=== PATIENT | male | born 1965 | race Caucasian/White ===

== ENCOUNTER 2017-03-02 19:15 | Emergency (ER) | payer OTHER ==
[~2017-03-02] VITALS: Ht 180.3 cm; Wt 75.8 kg
[~2017-03-02 19:15] MED LIST: FLEXERIL PO; NO HOME MEDS; TORADOL PO
[2017-03-02] MEDS ORDERED: PENICILLN VK500 MG PO (19:39)
[2017-03-02] MEDS ORDERED: TRAMADOL HYDROC50 MG PO (19:39)
[2017-03-02 19:50] VITALS: BP 138/87
== END 2017-03-02 19:50 | disposition home or self-care (01) | DRG 159 ==
LOC: ED 19:15
DX: K03.81 Cracked tooth (principal); F17.210 Nicotine dependence, cigarettes, uncomplicated

== ENCOUNTER 2017-03-29 21:03 | Inpatient (IN) | payer OTHER ==
[~2017-03-29] VITALS: Ht 180.3 cm; Wt 80.0 kg
[~2017-03-29 21:03] MED LIST changes: +PENICILLN VK500 MG PO; +TRAMADOL HYDROC50 MG PO
[2017-03-29 21:36] LABS: HEMATOCRIT 35.8 % (39.0-50.0); HEMOGLOBIN 12.6 g/dl (14.0-18.0); IMMATURE GRANULOCYTES 1.9 % (0.0-1.0); MEAN CELL VOLUME 94.7 fL CALC (80.0-100.0); MEAN CORPUSCULAR HGB 33.3 pG CALC (26.0-32.0); MEAN CORPUSCULAR HGB CONC 35.2 g/L CALC (32.0-36.0); PLATELET COUNT 127 thou/uL (130-400); RED BLOOD COUNT 3.78 mill/uL (4.70-6.10)
[2017-03-29 21:45] LABS: ALBUMIN 3.8 g/dL (3.2-5.0); ALKALINE PHOSPHATASE 198 u/l (38-126); ANION GAP 19 (6-22 (CALC)); BILIRUBIN, TOTAL 0.6 mg/dL (0.0-1.4); BUN 25 mg/dL (9-20); BUN/CREATININE RATIO 24 (12-20 (CALC)); CALCIUM 9.1 mg/dL (8.4-10.2); CARBON DIOXIDE 22 mmol/l (22-30); CHLORIDE 99 mmol/l (95-108); GFR > 60 ML/MIN (>=60 (CALC)); GFR FOR AFR.AMER. > 60 ML/MIN (>=60 (CALC)); GLUCOSE 113 mg/dL (75-110); POTASSIUM 2.8 mmol/l (3.5-5.1); SGOT/AST 33 u/l (17-59); SGPT/ALT 26 u/l (21-72); SODIUM 137 mmol/l (137-146); TOTAL PROTEIN 6.5 g/dL (6.3-8.2)
[2017-03-29 21:49] LABS: URINE BLOOD DIPSTICK LARGE (NEGATIVE); URINE CLARITY CLEAR; URINE COLOR YELLOW; URINE GLUCOSE - DIPSTICK NEGATIVE (NEGATIVE); URINE KETONE TRACE mg/dL (NEGATIVE); URINE LEUK ESTERASE NEGATIVE (NEGATIVE); URINE NITRITE - DIPSTICK NEGATIVE (Negative); URINE PH 5.5 (4.5-8.0); URINE PROTEIN - DIPSTICK 100 mg/dL (NEG-TRACE); URINE SPECIFIC GRAVITY 1.025; URINE UROBILINOGEN - DIPSTICK 0.2 E.U./dL (0.2)
[2017-03-29 21:53] LABS: URINE BILIRUBIN - DIPSTICK SMALL (NEGATIVE)
[2017-03-29 22:01] LABS: BAND 42 % (0-8); MANUAL DIFFERENTIAL YES
[2017-03-29 22:10] LABS: ETHYL ALCOHOL 0 mg/dl (0-30); MYOGLOBIN 578 ng/mL (0 - 121)
[2017-03-29 22:14] LABS: URINE RBC 25-50 RBC/hpf (0-5); URINE SQUAMOUS EPITHELIAL CELL FEW EPI/hpf (0-FEW)
[2017-03-29 22:15] LABS: URINE AMORPH SEDIMENT MODERATE hpf (NONE-FER)
[2017-03-29 22:17] LABS: COCAINE NEGATIVE (NEGATIVE); TETRAHYDROCANNABIONOL NEGATIVE (NEGATIVE)
[2017-03-29 22:18] LABS: BARBITURATES POSITIVE (NEGATIVE); METHADONE NEGATIVE (NEGATIVE); OXCYCODONE NEGATIVE (NEGATIVE); TRICYLIC ANTIDEPRESSANTS NEGATIVE (NEGATIVE)
[2017-03-29 23:25] LABS: INFLUENZA A NONE DETECTED (NONE DETECT); INFLUENZA B NONE DETECTED (NONE DETECT)
[2017-03-30] VITALS (19 sets, daily range): BP systolic 92–129; BP diastolic 63–79
[2017-03-30 09:43] LABS: BUN 16 mg/dL (9-20); BUN/CREATININE RATIO 27 (12-20 (CALC)); CALCIUM 8.3 mg/dL (8.4-10.2); CARBON DIOXIDE 20 mmol/l (22-30); CREATININE 0.6 mg/dL (0.7-1.3); GFR > 60 ML/MIN (>=60 (CALC)); GFR FOR AFR.AMER. > 60 ML/MIN (>=60 (CALC)); GLUCOSE 146 mg/dL (75-110); MAGNESIUM 1.7 mg/dL (1.6-2.3); POTASSIUM 4.3 mmol/l (3.5-5.1); SODIUM 146 mmol/l (137-146)
[2017-03-30 09:44] LABS: ANION GAP 13 (6-22 (CALC)); CHLORIDE 117 mmol/l (95-108)
[2017-03-30 09:47] LABS: HEMATOCRIT 31.8 % (39.0-50.0); HEMOGLOBIN 11.1 g/dl (14.0-18.0); MEAN CELL VOLUME 94.4 fL CALC (80.0-100.0); MEAN CORPUSCULAR HGB 32.9 pG CALC (26.0-32.0); MEAN CORPUSCULAR HGB CONC 34.9 g/L CALC (32.0-36.0); RED BLOOD COUNT 3.37 mill/uL (4.70-6.10); RED CELL DISTRI WIDTH 13.3 % (11.5-15.5)
[2017-03-31] VITALS (12 sets, daily range): BP systolic 125–188; BP diastolic 71–97
[2017-03-31 04:16] LABS: C. DIFFICILE TOXIN A&B NEGATIVE (NEGATIVE)
[2017-03-31 05:30] LABS: HEMATOCRIT 28.9 % (39.0-50.0); HEMOGLOBIN 10.2 g/dl (14.0-18.0); MEAN CELL VOLUME 93.8 fL CALC (80.0-100.0); MEAN CORPUSCULAR HGB 33.1 pG CALC (26.0-32.0); MEAN CORPUSCULAR HGB CONC 35.3 g/L CALC (32.0-36.0); PLATELET COUNT 75 thou/uL (130-400); RED BLOOD COUNT 3.08 mill/uL (4.70-6.10); RED CELL DISTRI WIDTH 13.5 % (11.5-15.5)
[2017-03-31 05:39] LABS: ANION GAP 11 (6-22 (CALC)); BUN 13 mg/dL (9-20); BUN/CREATININE RATIO 24 (12-20 (CALC)); CALCIUM 8.1 mg/dL (8.4-10.2); CARBON DIOXIDE 22 mmol/l (22-30); CHLORIDE 114 mmol/l (95-108); CPK 521 u/l (52-200); CREATININE 0.5 mg/dL (0.7-1.3); GFR > 60 ML/MIN (>=60 (CALC)); GFR FOR AFR.AMER. > 60 ML/MIN (>=60 (CALC)); GLUCOSE 134 mg/dL (75-110); POTASSIUM 3.9 mmol/l (3.5-5.1); SODIUM 143 mmol/l (137-146)
[2017-03-31 06:01] LABS: IMMATURE GRANULOCYTES 7.1 % (0.0-1.0)
[2017-03-31 06:02] LABS: BAND 11 % (0-8); MANUAL DIFFERENTIAL YES; MICROCYTOSIS FEW; SCHISTOCYTES FEW; TARGET CELLS FEW
[2017-03-31 06:03] LABS: ACANTHOCYTES FEW; BURR CELLS MODERATE; STOMATOCYTE FEW
[2017-04-01] VITALS (11 sets, daily range): BP systolic 115–198; BP diastolic 71–97
[2017-04-01 05:34] LABS: HEMATOCRIT 32.4 % (39.0-50.0); HEMOGLOBIN 11.4 g/dl (14.0-18.0); MEAN CELL VOLUME 92.8 fL CALC (80.0-100.0); MEAN CORPUSCULAR HGB 32.7 pG CALC (26.0-32.0); MEAN CORPUSCULAR HGB CONC 35.2 g/L CALC (32.0-36.0); RED BLOOD COUNT 3.49 mill/uL (4.70-6.10); RED CELL DISTRI WIDTH 13.3 % (11.5-15.5)
[2017-04-01 05:47] LABS: BUN 11 mg/dL (9-20); BUN/CREATININE RATIO 20 (12-20 (CALC)); CALCIUM 8.1 mg/dL (8.4-10.2); CARBON DIOXIDE 22 mmol/l (22-30); CHLORIDE 111 mmol/l (95-108); CREATININE 0.6 mg/dL (0.7-1.3); GFR > 60 ML/MIN (>=60 (CALC)); GFR FOR AFR.AMER. > 60 ML/MIN (>=60 (CALC)); GLUCOSE 103 mg/dL (75-110); SODIUM 143 mmol/l (137-146)
[2017-04-01 05:49] LABS: ANION GAP 13 (6-22 (CALC)); POTASSIUM 3.3 mmol/l (3.5-5.1)
[2017-04-02] VITALS (12 sets, daily range): BP systolic 126–176; BP diastolic 72–87
[2017-04-02 05:44] LABS: HEMOGLOBIN 12.4 g/dl (14.0-18.0); MEAN CELL VOLUME 90.2 fL CALC (80.0-100.0); MEAN CORPUSCULAR HGB 32.9 pG CALC (26.0-32.0); MEAN CORPUSCULAR HGB CONC 36.5 g/L CALC (32.0-36.0); RED BLOOD COUNT 3.77 mill/uL (4.70-6.10)
[2017-04-02 06:18] LABS: ANION GAP 13 (6-22 (CALC)); BUN 7 mg/dL (9-20); BUN/CREATININE RATIO 12 (12-20 (CALC)); CALCIUM 8.6 mg/dL (8.4-10.2); CARBON DIOXIDE 24 mmol/l (22-30); CHLORIDE 111 mmol/l (95-108); CREATININE 0.6 mg/dL (0.7-1.3); GFR > 60 ML/MIN (>=60 (CALC)); GFR FOR AFR.AMER. > 60 ML/MIN (>=60 (CALC)); GLUCOSE 89 mg/dL (75-110); MAGNESIUM 1.6 mg/dL (1.6-2.3); POTASSIUM 3.3 mmol/l (3.5-5.1); SODIUM 144 mmol/l (137-146)
[2017-04-03 04:48] VITALS: BP 137/63
[2017-04-03 05:47] LABS: HEMATOCRIT 33.9 % (39.0-50.0); HEMOGLOBIN 12.2 g/dl (14.0-18.0); MEAN CELL VOLUME 90.4 fL CALC (80.0-100.0); MEAN CORPUSCULAR HGB 32.5 pG CALC (26.0-32.0); RED BLOOD COUNT 3.75 mill/uL (4.70-6.10); RED CELL DISTRI WIDTH 12.9 % (11.5-15.5)
[2017-04-03 05:56] LABS: ANION GAP 12 (6-22 (CALC)); BUN 8 mg/dL (9-20); BUN/CREATININE RATIO 13 (12-20 (CALC)); CALCIUM 8.6 mg/dL (8.4-10.2); CARBON DIOXIDE 25 mmol/l (22-30); CHLORIDE 107 mmol/l (95-108); CREATININE 0.6 mg/dL (0.7-1.3); GFR > 60 ML/MIN (>=60 (CALC)); GFR FOR AFR.AMER. > 60 ML/MIN (>=60 (CALC)); GLUCOSE 102 mg/dL (75-110); MAGNESIUM 1.7 mg/dL (1.6-2.3); POTASSIUM 3.3 mmol/l (3.5-5.1); SODIUM 141 mmol/l (137-146)
[2017-04-03 06:18] LABS: IMMATURE GRANULOCYTES 10.7 % (0.0-1.0); MANUAL DIFFERENTIAL YES; PLATELET COUNT 211 thou/uL (130-400)
[2017-04-03 08:01] VITALS: BP 138/76
[2017-04-03 12:00] VITALS: BP 121/70
[2017-04-03 15:58] VITALS: BP 139/79
[2017-04-03 19:36] VITALS: BP 125/74
[2017-04-03 23:27] VITALS: BP 130/77
[2017-04-04 04:00] VITALS: BP 139/80
[2017-04-04 07:21] LABS: HEMOGLOBIN 11.8 g/dl (14.0-18.0); IMMATURE GRANULOCYTES 4.9 % (0.0-1.0); MEAN CELL VOLUME 91.2 fL CALC (80.0-100.0); MEAN CORPUSCULAR HGB 32.6 pG CALC (26.0-32.0); MEAN CORPUSCULAR HGB CONC 35.8 g/L CALC (32.0-36.0); RED BLOOD COUNT 3.62 mill/uL (4.70-6.10)
[2017-04-04 07:23] LABS: PLATELET COUNT 287 thou/uL (130-400)
[2017-04-04 07:26] LABS: MANUAL DIFFERENTIAL YES
[2017-04-04 07:36] LABS: ANION GAP 13 (6-22 (CALC)); BUN 10 mg/dL (9-20); BUN/CREATININE RATIO 19 (12-20 (CALC)); CALCIUM 8.8 mg/dL (8.4-10.2); CARBON DIOXIDE 23 mmol/l (22-30); CHLORIDE 108 mmol/l (95-108); CREATININE 0.5 mg/dL (0.7-1.3); GFR > 60 ML/MIN (>=60 (CALC)); GFR FOR AFR.AMER. > 60 ML/MIN (>=60 (CALC)); GLUCOSE 117 mg/dL (75-110); POTASSIUM 4.1 mmol/l (3.5-5.1); SODIUM 139 mmol/l (137-146)
[2017-04-04 07:45] VITALS: BP 126/70
[2017-04-04] MEDS ORDERED: DIPHENHYDRAM25 MG PO (11:15)
[2017-04-04] MEDS ORDERED: FLORASTOR250 M1 PO (11:15)
[2017-04-04] MEDS ORDERED: TAB-A-VITE W/1 COMBO PO (11:15)
[2017-04-04] MEDS ORDERED: ROCEPHIN 2 GM2 GM IM ×2 (11:16→14:51)
[2017-04-04 12:46] VITALS: BP 129/69
[2017-04-04 16:09] VITALS: BP 140/85
== END 2017-04-04 18:30 | disposition home or self-care (01) | DRG 871 ==
LOC: ED 21:03 → ED-I 03-30 02:30 → ED 03-30 03:10 → ICU 03-30 03:11 → MS2 03-30 03:11
PROVIDERS: Emergency Medicine; Internal Medicine; Nurse Practitioner Family; ADMIT Internal Medicine; ATTEND Internal Medicine
PROC: 0T9B70Z Drainage of Bladder with Drainage Device, Via Natural or Artificial Opening (ICD-10-PCS; principal; 2017-03-29)
PROC: 009U3ZX Drainage of Spinal Canal, Percutaneous Approach, Diagnostic (ICD-10-PCS; 2017-03-30)
PROC: 02HV33Z Insertion of Infusion Device into Superior Vena Cava, Percutaneous Approach (ICD-10-PCS; 2017-04-04)
PROC: B518ZZA Fluoroscopy of Superior Vena Cava, Guidance (ICD-10-PCS; 2017-04-04)
DX: A41.3 Sepsis due to Hemophilus influenzae (principal); G00.0 Hemophilus meningitis; G93.41 Metabolic encephalopathy; M62.82 Rhabdomyolysis; R65.20 Severe sepsis without septic shock; F17.210 Nicotine dependence, cigarettes, uncomplicated; K29.70 Gastritis, unspecified, without bleeding; E87.6 Hypokalemia; D64.9 Anemia, unspecified; L50.9 Urticaria, unspecified; Z90.81 Acquired absence of spleen
CPT/HCPCS: J1650; J2060; J3370

== ENCOUNTER 2017-04-05 20:12 | Emergency (ER) | payer OTHER ==
[~2017-04-05] VITALS: Ht 180.3 cm; Wt 74.0 kg
[2017-04-05 08:38] VITALS: BP 116/82
[~2017-04-05 20:12] MED LIST changes: +DIPHENHYDRAM25 MG PO; +FLORASTOR250 M1 PO; +ROCEPHIN 2 GM2 GM IM; +TAB-A-VITE W/1 COMBO PO
[2017-04-05 20:25] VITALS: BP 157/79
== END 2017-04-05 21:15 | disposition home or self-care (01) | DRG 96 ==
LOC: ED 20:12 → ICUOP 20:12 → EDSTATUS 20:20 → ED 21:15
DX: G00.9 Bacterial meningitis, unspecified (principal)

== ENCOUNTER 2017-06-08 13:39 | Emergency (ER) | payer OTHER ==
[~2017-06-08] VITALS: Ht 180.3 cm; Wt 76.0 kg
[2017-06-08] MEDS ORDERED: CLINDAMYCIN300 M1 PO (14:09)
[2017-06-08 14:20] VITALS: BP 127/86
== END 2017-06-08 14:20 | disposition home or self-care (01) | DRG 159 ==
LOC: ED 13:39
DX: K08.89 Other specified disorders of teeth and supporting structures (principal); F17.210 Nicotine dependence, cigarettes, uncomplicated

== ENCOUNTER 2020-09-02 00:36 | Emergency (ER) | payer OTHER ==
[~2020-09-02] VITALS: Ht 180.3 cm; Wt 76.3 kg
[~2020-09-02 00:36] MED LIST changes: +CLINDAMYCIN300 M1 PO
[2020-09-02] MEDS ORDERED: AMOX/K CLAV875 M1 PO ×2 (01:14→10:14)
[2020-09-02 01:30] VITALS: BP 142/72
== END 2020-09-02 01:30 | disposition home or self-care (01) ==
LOC: ED 00:36
DX: K04.7 Periapical abscess without sinus (principal); S02.5XXA Fracture of tooth (traumatic), initial encounter for closed fracture; F17.210 Nicotine dependence, cigarettes, uncomplicated; X58.XXXA Exposure to other specified factors, initial encounter

== ENCOUNTER 2020-10-12 09:56 | Emergency (ER) | payer OTHER ==
[~2020-10-12] VITALS: Ht 180.3 cm; Wt 75.0 kg
[~2020-10-12 09:56] MED LIST changes: +AMOX/K CLAV875 M1 PO
[2020-10-12] MEDS ORDERED: CLEOCIN300 MG PO (10:47)
[2020-10-12 10:50] VITALS: BP 170/85
== END 2020-10-12 10:47 | disposition home or self-care (01) ==
LOC: ED 09:56
DX: K08.89 Other specified disorders of teeth and supporting structures (principal); F17.210 Nicotine dependence, cigarettes, uncomplicated

== ENCOUNTER 2020-12-29 19:38 | Emergency (ER) | payer OTHER ==
[~2020-12-29] VITALS: Ht 180.3 cm; Wt 77.0 kg
[~2020-12-29 19:38] MED LIST changes: +CLEOCIN300 MG PO
[2020-12-29] MEDS ORDERED: ZITHROMAX TRI-500 MG PO (20:50)
[2020-12-29 20:58] VITALS: BP 145/96
== END 2020-12-29 21:00 | disposition home or self-care (01) ==
LOC: ED 19:38
DX: J40 Bronchitis, not specified as acute or chronic (principal); F17.210 Nicotine dependence, cigarettes, uncomplicated; Z20.822 Contact with and (suspected) exposure to COVID-19

== ENCOUNTER 2021-04-15 09:32 | Emergency (ER) | payer OTHER ==
[~2021-04-15] VITALS: Ht 180.3 cm; Wt 77.0 kg
[~2021-04-15 09:32] MED LIST changes: +ZITHROMAX TRI-500 MG PO
[2021-04-15] MEDS ORDERED: CLEOCIN300 MG PO (10:11)
[2021-04-15 10:21] VITALS: BP 186/92
== END 2021-04-15 10:26 | disposition home or self-care (01) ==
LOC: ED 09:32
DX: K04.7 Periapical abscess without sinus (principal); F17.210 Nicotine dependence, cigarettes, uncomplicated